=== PATIENT | male | born 1940 | race Caucasian/White ===

== ENCOUNTER 2022-08-11 21:00 | Observation (INO) | payer OTHER ==
[2022-08-11 23:20] VITALS: BMI 33.4
[2022-08-12] MEDS ORDERED: Acetaminophen 325 MG TAB PO PRN (00:01)
[2022-08-12] MEDS ORDERED: Ondansetron ODT 4 MG TAB PO PRN (00:01)
[2022-08-12] MEDS ORDERED: Ondansetron PF 4 MG/2 ML Vial IVP PRN (00:01)
[2022-08-12] MEDS ORDERED: Acetaminophen 650 MG Suppository PR PRN (00:01)
[2022-08-12] MEDS ORDERED: hydrALAZINE 20 MG/ML VIAL SLOW IVP PRN (00:57)
[2022-08-12] MEDS: Enoxaparin Sodium 120 MG/0.8 ML SYRINGE SC SCH ×2 (01:06→12:51)
[2022-08-12 05:17] LABS: #Eosinphils 0.1 thou/uL (0.0-0.7); #Lymphocytes 1.9 thou/uL (1.20-3.40); #Monocytes 0.7 thou/uL (0.11-0.59); #Neutrophils 6.3 thou/uL (1.40-6.50); %Basophils 0.5 % (0.0-1.0); %Eosinophils 1.5 % (0.0-10.0); %Monocytes 7.4 % (0.0-10.0); %Neutrophils 69.6 % (42.0-75.0); Hemoglobin 14.7 g/dL (14.0-18.0); Mean Corpuscular HGB CONC 33.5 g/dL (32.0-36.0); Mean Corpuscular Hemoglobin 32.4 pg (27.0-31.0); Mean Corpuscular Volume 96.8 fL (78.0-98.0); Platelet Count 140 thou/uL (130-400); RBC Distribution Width 12.3 % (11.5-14.5); Red Blood Cell (RBC) Count 4.55 mill/uL (4.70-6.10); White Blood Cell (WBC) Count 9.1 thou/uL (4.8-10.8)
[2022-08-12 05:30] LABS: Anion Gap 11 mmol/L (10-20); BUN (Urea Nitrogen) 20 mg/dL (8.4-25.7); Calc. Creatinine Clearance 71 mL/min (70-130); Calcium 9.6 mg/dL (7.8-10.44); Carbon Dioxide 25 mmol/L (23-31); Chloride 106 mmol/L (98-107); Estimated GFR 59; Glucose 149 mg/dL (83-110); Potassium 4.1 mmol/L (3.5-5.1); Sodium 138 mmol/L (136-145)
[2022-08-12] MEDS: hydrALAZINE 25 MG TAB PO SCH ×2 (09:34→20:15)
[2022-08-12] MEDS: Losartan 25 MG TAB PO SCH ×2 (09:34→20:15)
[2022-08-12] MEDS: Rosuvastatin 5 MG TAB PO SCH (09:34)
[2022-08-12] MEDS: Allopurinol 100 MG TAB PO SCH ×2 (09:34→20:15)
[2022-08-12] MEDS: Carvedilol 25 MG TAB PO SCH ×2 (09:34→18:01)
[2022-08-12 10:29] LABS: Anion Gap 11 mmol/L (10-20); BUN (Urea Nitrogen) 19 mg/dL (8.4-25.7); Calc. Creatinine Clearance 85 mL/min (70-130); Calcium 9.2 mg/dL (7.8-10.44); Carbon Dioxide 22 mmol/L (23-31); Chloride 107 mmol/L (98-107); Estimated GFR 74; Glucose 150 mg/dL (83-110); Potassium 4.1 mmol/L (3.5-5.1); Sodium 136 mmol/L (136-145)
[2022-08-13] MEDS ORDERED: Enoxaparin Sodium 120 MG/0.8 ML SYRINGE SC SCH (03:00)
[2022-08-13] MEDS: Carvedilol 25 MG TAB PO SCH (08:55)
[2022-08-13] MEDS: Allopurinol 100 MG TAB PO SCH (08:55)
[2022-08-13] MEDS: hydrALAZINE 25 MG TAB PO SCH (08:56)
[2022-08-13] MEDS: Losartan 25 MG TAB PO SCH (08:56)
[2022-08-13] MEDS: Rosuvastatin 5 MG TAB PO SCH (08:56)
[2022-08-13 11:25] VITALS: BP 110/58; TEMP 98
[2022-08-14] MEDS ORDERED: Enoxaparin Sodium 120 MG/0.8 ML SYRINGE SC SCH (09:00)
== END 2022-08-13 13:00 | disposition home or self-care (01) ==
LOC: 2SW 22:50
PROVIDERS: ADMIT Family Medicine; ATTEND Family Medicine
DX: I48.91 Unspecified atrial fibrillation (principal); R01.1 Cardiac murmur, unspecified; I12.9 Hypertensive chronic kidney disease with stage 1 through stage 4 chronic kidney disease, or unspecified chronic kidney disease; N18.30 Chronic kidney disease, stage 3 unspecified; N17.9 Acute kidney failure, unspecified; I08.3 Combined rheumatic disorders of mitral, aortic and tricuspid valves; M10.9 Gout, unspecified; I44.0 Atrioventricular block, first degree; Z79.899 Other long term (current) drug therapy; Z20.822 Contact with and (suspected) exposure to COVID-19
CPT/HCPCS: 80048 ×2; 85025; 93306; U0003; U0005; 36415; 96372; G0378; J1650; Q0162